=== PATIENT | male | born 1990 ===

== ENCOUNTER 2018-02-28 23:56 | Emergency (ER) | payer OTHER ==
[2018-03-01] MEDS ORDERED: MOTRIN PO ONE (02:16)
--- NOTE | 2018-03-01 02:39 | XRay Report ---
FINAL REPORT EXAM: XR SPINE LUMBOSACRAL 2-3V HISTORY: lower back pain TECHNIQUE: Three views of the lumbar spine were submitted. FINDINGS: There are no bony or soft tissue abnormalities identified. IMPRESSION: Within normal limits.
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
[2018-03-01 07:39] VITALS: BP 135/83
== END 2018-03-01 07:39 | disposition home or self-care (01) ==
LOC: ED 23:56
DX: S39.012A Strain of muscle, fascia and tendon of lower back, initial encounter (principal); V89.2XXA Person injured in unspecified motor-vehicle accident, traffic, initial encounter; Y93.89 Activity, other specified; Y92.89 Other specified places as the place of occurrence of the external cause; Y99.8 Other external cause status
CPT/HCPCS: 72100; 99283